=== PATIENT | male | born 1975 | race Caucasian/White ===

== ENCOUNTER 2024-07-23 15:38 | Emergency (ER) | payer MEDICAID ==
[~2024-07-23] VITALS: Ht 165.1 cm; Wt 70.0 kg
[2024-07-23 15:41] VITALS: O2SAT 98
[2024-07-23] MEDS: BACITRACIN ZINC OINT UDPKT TOP ONE (16:45)
[2024-07-23 17:02] LABS: BASOPHILS % 0.5 % (0.0-2.0); EOSINOPHILS % 0.6 % (0.0-5.0); HEMATOCRIT. 40.5 % (42.0-52.0); HEMOGLOBIN. 13.8 g/dL (14.0-18.0); LYMPHOCYTES % 21.4 % (20.0-50.0); MEAN CORPUSCULAR VOLUME 91.2 fL (80.0-94.0); MEAN PLATELET VOLUME 8.5 fl (7.4-10.4); MONOCYTES % 6.9 % (2.0-8.0); NEUTROPHILS % 70.6 % (40.0-76.0); PLATELET 155 x1000/uL (130-400); RED BLOOD CELL COUNT 4.44 mill/uL (4.7-6.1); RED CELL DISTRIBUTION WIDTH 14.4 % (11.6-14.6); WHITE BLOOD COUNT 9.9 x1000/uL (4.5-11.0)
[2024-07-23 17:10] LABS: CHLORIDE 103 mEq/L (98-107); POTASSIUM 3.6 mEq/L (3.5-5.1); SODIUM 138 mEq/L (136-145)
[2024-07-23 17:11] LABS: CALCIUM 9.4 mg/dL (8.7-10.4); CARBON DIOXIDE 24 mEq/L (21-32)
[2024-07-23 17:16] LABS: CREATININE 1.1 mg/dL (0.6-1.3); GLUCOSE 185 mg/dL (70-105); UREA NITROGEN BLOOD 18 mg/dL (9-23)
[2024-07-23 17:17] LABS: AMMONIA 18 uMol/L (<32); TROPONIN I HIGH SENSITIVITY 43 ng/L (3.0-53)
[2024-07-23 17:18] LABS: ETHANOL BLOOD < 10 mg/dL (<10)
[2024-07-23] MEDS: TETANUS, DIPHTHERIA, PERTUSSIS VAC/PF 0.5ML (>10YR OLD) IM ONE (17:33)
[2024-07-23] MEDS: LIDOCAINE HCL/EPINEPHRINE 1%-EPI 1:100,000 20ML VIAL INFIL ONE (17:34)
[2024-07-23] MEDS: ONDANSETRON HCL 4MG/2ML INJ IV ONE (19:41)
[2024-07-23] MEDS: MORPHINE SULFATE 4 MG/ML INJ (FOR IV/IM USE) IV ONE (19:41)
[2024-07-23 21:30] VITALS: PULSE 95; RESP 17; TEMP 36.8; O2SAT 98
[2024-07-23] MEDS ORDERED: NICARDIPINE 40MG/200ML PREMIX 200 ML IV PRN (21:45)
[2024-07-23 21:47] VITALS: BP 150/100
[2024-07-23] MEDS: LABETALOL 5MG/ML 4ML INJ IV ONE (21:47)
== END 2024-07-23 22:39 | disposition short-term general hospital (02) ==
LOC: ER 15:38
DX: S00.03XA Contusion of scalp, initial encounter (principal); X58.XXXA Exposure to other specified factors, initial encounter; Y93.89 Activity, other specified; Y92.89 Other specified places as the place of occurrence of the external cause; Y99.8 Other external cause status
CPT/HCPCS: 80048; 80320; 82140; 85025; 84484; 36415; 70450; 72125; 90715; 90471; 96374; 96375; 99285; Z7610 ×4; J3490; J2405; J2270; G0480

== ENCOUNTER 2024-08-07 12:13 | Emergency (ER) | payer MEDICAID ==
[~2024-08-07] VITALS: Ht 172.7 cm; Wt 78.0 kg
[2024-08-07 12:16] VITALS: O2SAT 97
[2024-08-07 12:21] VITALS: BP 164/87; PULSE 68; RESP 16; TEMP 36.8; O2SAT 100
[2024-08-07] MEDS ORDERED: BO1 TP (12:53)
== END 2024-08-07 13:07 | disposition home or self-care (01) ==
LOC: ER 12:21
DX: Z48.02 Encounter for removal of sutures (principal)
CPT/HCPCS: 99282; Z7610 ×2

== ENCOUNTER 2024-08-11 12:23 | Emergency (ER) | payer MEDICAID ==
[~2024-08-11] VITALS: Ht 165.1 cm; Wt 70.0 kg
[~2024-08-11 12:23] MED LIST: BO1 TP
[2024-08-11 12:41] VITALS: O2SAT 100
[2024-08-11 12:58] VITALS: BP 154/93; PULSE 91; RESP 16; TEMP 36.7; O2SAT 100
== END 2024-08-11 14:19 | disposition home or self-care (01) ==
LOC: ER 12:23
DX: S01.01XD Laceration without foreign body of scalp, subsequent encounter (principal); X58.XXXD Exposure to other specified factors, subsequent encounter
CPT/HCPCS: 99281